=== PATIENT | female | born 2000 | race Hispanic/Latino ===

== ENCOUNTER 2023-11-09 15:30 | Outpatient (RCR) | payer OTHER, SELFPAY ==
--- NOTE | 2023-09-18 14:58 | OTOPEVAL1 ---
Assessment and note entered by Pepe Joiner, ALBARO/Reshma, CHT Evaluation Information Assessment Status Evaluation Diagnosis Bilateral carpal tunnel syndrome Subjective Information Patient reports experiencing symptoms for about 6 months. She is right handed. She reports the right is worse than the left. She works at [employer]. 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 She reports she has wrist splints, but these cause her hands to tingle, so she hasn't been wearing them. Reported Pain Level Additional Pain Score Comments Patient reporting no pain at rest. With use, the pain on the right can get up to 8.5/ 10. With use, the pain on the left can get up to 5/10. Assessment OT Clinical Summary Patient referred to OT with dx of bilateral carpal tunnel syndrome. She presents with pain and intermittent paresthesia in the median nerve distribution of the hand as well as the thenar eminence. She has signs and symptoms of some proximal compression of the median nerve at the pronator teres also due to repetitive wrist and hand motions she does at work. Instructed in stretching, nerve glides, and tendon glides. Continued follow up indicated to progress HEP as tolerated, modalities, manual therapy, and therapeutic exercise to promote reduced nerve compression, reduced pain, and improved functional bilateral UE use. Plan of Care Interventions Therapeutic Exercise,Manual Therapy,Ultrasound, Paraffin OT Services Indicated Yes Treatment Frequency and 2x/week for 6 visits Duration These treatments will address the objective and functional deficits as defined above. The patient will be advanced safely and appropriately in order for the patient to progress towards his/her prior level of function. Additional exercises will be introduced and as well as a comprehensive home exercise program upon discharge, if needed, ?to ensure carryover of functional gains achieved in the clinic. This treatment plan has been reviewed and agreement upon by the patient.
--- NOTE | 2023-09-18 14:58 | OPREHPOC ---
Outpatient Therapy Plan of Care This is a Multidisciplinary Plan of Care that may contain components documented by all disciplines (PT, OT, and ST.) OT Problem 1 OT Problem #1 Knowledge Deficit OT Goal 1 Goal 1. Patient to be independent with instructed materials. Target Visit 6 OT Problem 2 OT Problem #2 Impaired Balance OT Goal 1 Goal 1. Patient to report 0/10 pain in bilateral UEs. Target Visit 6 OT Problem 3 OT Problem #3 Impaired Flexibility OT Goal 1 Goal 1. Patient to be able to move bilateral UEs through full ROM without reports of tightness or pain. 2. Patient to be able to complete median nerve tension assessment without positive symptoms. Target Visit 6
--- NOTE | 2023-10-05 14:52 | OTOPPROG ---
Assessment and note entered by Pepe Joiner, ALBARO/Reshma, CHT OT Progress Update 10/05/23 Diagnosis Bilateral carpal tunnel syndrome Subjective Information Patient reports she is making progress with bilateral UEs. She reports she is noticing less paresthesia in bilateral UEs. She reports after a shift at work she continues to experience tightness and pain in her forearms that radiates to her wrists and hands. She states she has not been waking up with night paresthesia for 3+ days. Assessment OT Clinical Summary Patient referred to OT with dx of bilateral carpal tunnel syndrome. She has been participating in OT x3 weeks. OT has been focusing on improving functional flexibility of the elbows, forearms, and wrists. She appears to overwork the wrist and finger flexors at work, causing proximal compression of the median nerve at the medial elbow. She is tolerating more therapeutic exercise and stretching without onset of symptoms. She greatly benefits from the use of the paraffin and hands-on manual soft tissue mobilization as well. Continued skilled OT indicated to progress HEP as tolerated, modalities, manual therapy, and therapeutic exercise to promote reduced nerve compression, reduced pain, and improved functional bilateral UE use. Plan of Care Interventions Therapeutic Exercise,Manual Therapy,Ultrasound, Paraffin OT Services Indicated Yes Treatment Frequency and 2x/week for 6 visits Duration These treatments will address the objective and functional deficits as defined above. The patient will be advanced safely and appropriately in order for the patient to progress towards his/her prior level of function. Additional exercises will be introduced and as well as a comprehensive home exercise program upon discharge, if needed, ?to ensure carryover of functional gains achieved in the clinic. This treatment plan has been reviewed and agreement upon by the patient.
--- NOTE | 2023-10-05 14:53 | OPREHPOC ---
Outpatient Therapy Plan of Care This is a Multidisciplinary Plan of Care that may contain components documented by all disciplines (PT, OT, and ST.) OT Problem 1 OT Problem #1 Knowledge Deficit OT Goal 1 Goal 1. Patient to be independent with instructed materials. ---OT POC UPDATE 10/05/23--- 1. Met, continue as HEP is progressed Target Visit 12 OT Problem 2 OT Problem #2 Impaired Balance OT Goal 1 Goal 1. Patient to report 0/10 pain in bilateral UEs. ---OT POC UPDATE 10/05/23--- 1. Intermittently met, continue to treat pain Target Visit 12 OT Problem 3 OT Problem #3 Impaired Flexibility OT Goal 1 Goal 1. Patient to be able to move bilateral UEs through full ROM without reports of tightness or pain. 2. Patient to be able to complete median nerve tension assessment without positive symptoms. ---OT POC UPDATE 10/05/23--- 1. Progressing, no longer painful, just reports of tightness especially after work 2. Progressing, but not met, continue Target Visit 12 OT Problem 4 OT Problem #4 Impaired Strength OT Goal 1 Goal New Strength Goals: 1. Patient to improve functional wrist strength as demonstrated by being able to complete gross wrist strengthening with 3 lb. free weight x20 reps. 2. 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 Target Visit 12
--- NOTE | 2023-10-09 15:30 | OPREHPOC ---
Outpatient Therapy Plan of Care This is a Multidisciplinary Plan of Care that may contain components documented by all disciplines (PT, OT, and ST.) PT Problem 1 PT Problem #1 Knowledge Deficit PT Goal 1 Goal *indep with HEP Target Visit 6 PT Problem 2 PT Problem #2 Pain PT Goal 1 Goal 1* pain rating at worst of 3/10 2* pt report NO pain increase with standing/ walking 8 hours 3* self assessment with LE functional scale of 8% limitation in activity Target Visit 6 PT Problem 3 PT Problem #3 Impaired Strength PT Goal 1 Goal increase strength of R ankle and LE to improve stability to ankle 1* single leg PF x 20 reps with good stability 2* pt perform sitting ankle in/eversion, with heel on ground, with 3# weight on forefoot x 15 reps Target Visit 6 OT Problem 1 OT Problem #1 Knowledge Deficit OT Goal 1 Goal 1. Patient to be independent with instructed materials. ---OT POC UPDATE 10/05/23--- 1. Met, continue as HEP is progressed Target Visit 12 OT Problem 2 OT Problem #2 Impaired Balance OT Goal 1 Goal 1. Patient to report 0/10 pain in bilateral UEs. ---OT POC UPDATE 10/05/23--- 1. Intermittently met, continue to treat pain Target Visit 12 OT Problem 3 OT Problem #3 Impaired Flexibility OT Goal 1 Goal 1. Patient to be able to move bilateral UEs through full ROM without reports of tightness or pain. 2. Patient to be able to complete median nerve tension assessment without positive symptoms. ---OT POC UPDATE 10/05/23--- 1. Progressing, no longer painful, just reports of tightness especially after work 2. Progressing, but not met, continue Target Visit 12 OT Problem 4 OT Problem #4 Impaired Strength OT Goal 1 Goal New Strength Goals: 1. Patient to improve functional wrist strength as demonstrated by being able to com
--- NOTE | 2023-10-09 15:31 | PTOPEVAL1 ---
Assessment and note entered by Elizabeth Zhang PT Evaluation Information Assessment Status Evaluation Diagnosis R ankle sprain Other ICD-10 Condition Codes ( S93.401A PT) Onset August 01, 2023 Subjective Information was at work, taking out trash, lid of the dumpster caught, stepped off curb and R ankle popped, with pain; then ankle swollen. had walking boot until about 3 weeks ago. pt reports no restrictions from dr x ray of ankle--no fracture; work at [employer] or [employer]; have been working entire time, not off due to ankle pain; Reported Pain Level Pain Score Self Report Additional Pain Score Comments pain range in the past week 0-6/10; medial, anterior and lateral aspects of ankle; pinching in ankle- but not able to point or state where the pinch occurs; increase pain: move ankle up/down or side/side, shooting pain with running; after working/ active/ standing about 8 hours feel ankle more; decrease pain: sit, rest, ice; elevate leg Assessment PT Clinical Summary Nicolasa has the diagnosis of R ankle sprain in July. She had a walking boot until few weeks ago, and has been working at [employer]. Self assessment LE functional scale of 18% limitation in activity level. She has increase pain with running and standing/walking about 8 hours. Reports some swelling and pinching in ankle. With the evaluation: active ROM of R ankle is same at L ankle, with painful motions of all ranges, DF/PF most pain; single leg standing time is the same for R/L; does not have any tenderness with palpation over ankle; with 3 circumferential measurements of ankle R/L 2 were same and 1 within one cm; standing posture with decreased arch of foot and hip IR. Skilled PT services for modalities to decrease pain, therapeutic exercises to increase R LE strength and stability to ankle, to improve posture and positioning, with education for HEP. Plan of Care Interventions Electrical Stimulation,Gait Training,Hot Pack/Cold
--- NOTE | 2023-10-20 15:08 | PCOTNOTE ---
Patient did not show up for scheduled appointment this date. Patient was contacted and left a message to call back and reschedule if able.
--- NOTE | 2023-11-09 15:08 | OTOPDC ---
Assessment and note entered by Pepe Joiner, ALBARO/Reshma, ANÍBAL OT D/C 11/09/23 Assessment Status Discharge Diagnosis Bilateral carpal tunnel syndrome Subjective Information Patient reports she is making progress with bilateral UEs. She reports no longer experiencing any tingling. She reports experiencing residual tightness in her forearms after a day of work. Reports no pain. Reported Pain Level Pain Score 0: Self Report Assessment OT Clinical Summary Patient referred to OT with dx of bilateral carpal tunnel syndrome. She has been participating in OT x8 weeks. OT has been focusing on improving functional flexibility and strength of the elbows, forearms, and wrists. She appears to overwork the wrist and finger flexors at work, causing proximal compression of the median nerve at the medial elbow. Today measurements show her strength has progressed to normal limits and she is no longer experiencing paresthesia or pain. She continues to experience proximal forearm tightness after a shift, but she has been stretching and strengthening to help alleviate this. D/C OT with patient independent with HEP. Plan of Care OT Services Indicated No
--- NOTE | 2023-11-09 15:45 | PTOPDC ---
Assessment and note entered by Elizabeth Zhang, PT Discharge Report Assessment Status Discharge Diagnosis R ankle sprain Other ICD-10 Condition Codes ( S93.401A PT) Onset August 01, 2023 Subjective Information have been doing the exercises OK; am able to work her whole shift OK; pain is less, but still have a pinch in ankle at times. Agree to discharge from PT and do the exercises at home. Reported Pain Level Pain Score Self Report Pain Score Self Report Additional Pain Score Comments pain range in the past week 0-4/10: medial R ankle to upper aspect of lower leg- needle when walking increase pain: standing/walking 8-9 hours of activity before feel it in ankle-- able to do her whole work shift OK decrease pain: ice, elevation, sit/rest is not taking any pain meds; Assessment PT Clinical Summary Nicolasa has received 6 PT sessions. Compared to the initial evaluation: pain range 0-6/10 to 0-4/10; self assessment LE functional scale of 18% to 20% limitation in activity level; increase reported standing/walking tolerance from 8 to 8-9 hours--able to do all work and home activities; active ankle ROM is WNL, pain increase with DF and eversion motions, over medial ankle; increase strength of R ankle and LE: leg press and ankle press bilateral 110# x 20 reps/ R only leg press 80#/ L only 80# x 20 reps each. Her gait pattern in normal. Education completed for HEP & pain control. The goals were partially met. Discharge PT services. She is to continue with HEP. Plan of Care PT Services Indicated No
== END 2023-11-09 17:17 | disposition home or self-care (01) ==
LOC: ANHPT 15:30
PROVIDERS: PCP Physician Assistant Medical; Visit Provider Physician Assistant Medical
DX: G56.03 Carpal tunnel syndrome, bilateral upper limbs (principal); S93.401D Sprain of unspecified ligament of right ankle, subsequent encounter
CPT/HCPCS: 97018; 97110; 97140; 97161; 97165; 97530